=== PATIENT | male | born 1970 | race African-American/Black ===

== ENCOUNTER 2020-05-19 14:20 | Emergency (ER) | payer MEDICAID ==
[~2020-05-19] VITALS: Ht 167.6 cm; Wt 84.0 kg
[2020-05-19] MEDS ORDERED: MORPHINE SULFATE 4 MG/ML CPJ (NOT FOR IM USE) IV ONE (15:30)
[2020-05-19 15:50] VITALS: BP 120/88
== END 2020-05-19 16:02 | disposition home or self-care (01) ==
LOC: ER 14:45
DX: M54.2 Cervicalgia (principal); M79.18 Myalgia, other site
CPT/HCPCS: 96374; 99283; J2270

== ENCOUNTER 2023-09-26 11:42 | Emergency (ER) | payer MEDICAID, OTHER ==
[~2023-09-26] VITALS: Ht 167.6 cm; Wt 79.0 kg
[2023-09-26 12:03] VITALS: PULSE 83; TEMP 98.5; O2SAT 100
[2023-09-26] MEDS: ACETAMINOPHEN 325MG TABLET PO ONE (13:35)
[2023-09-26 15:00] VITALS: BP 130/86; RESP 16
[2023-09-26] MEDS: LIDOCAINE 5% PATCH TOP SCH (15:00)
== END 2023-09-26 15:23 | disposition home or self-care (01) ==
LOC: ER 11:42
DX: M25.511 Pain in right shoulder (principal); Z98.890 Other specified postprocedural states
CPT/HCPCS: 99282

== ENCOUNTER 2024-12-27 09:59 | Emergency (ER) | payer MEDICAID ==
[~2024-12-27] VITALS: Ht 167.6 cm; Wt 82.0 kg
[2024-12-27 10:18] VITALS: TEMP 36.9; O2SAT 97
[2024-12-27] MEDS: TETRACAINE 0.5% OPHTH DROPS 4ML LEFTEYE ONE (11:50)
[2024-12-27] MEDS: FLUORESCEIN SODIUM 1MG/STRIP LEFTEYE ONE (11:50)
[2024-12-27] MEDS ORDERED: TOBR5DRO70 LEFTEYE (13:01)
[2024-12-27] MEDS ORDERED: PROP1DRO2 MT (13:01)
[2024-12-27] MEDS ORDERED: CEPH500C2 MT (13:02)
[2024-12-27 13:12] VITALS: BP 133/82; PULSE 87; RESP 16; O2SAT 100
== END 2024-12-27 13:29 | disposition home or self-care (01) ==
LOC: ER 09:59
DX: H53.142 Visual discomfort, left eye (principal); H02.844 Edema of left upper eyelid
CPT/HCPCS: 99283